=== PATIENT | female | born 1945 | race Caucasian/White ===

== ENCOUNTER 2016-12-28 06:49 | Day surgery (SDC) | payer MEDICARE, BC ==
[~2016-12-28 06:49] MED LIST: Buffered Lidocaine 0.9% SYRIN* 5 ML/SYR SYRINGE INTRADERM ONE
[2016-12-28] MEDS ORDERED: Propofol* 10 MG/ML 20 ML BTL IV PUSH ONE (09:14)
[2016-12-28] MEDS ORDERED: Lidocaine 2% PF * 5 ML VIAL ONE (09:14)
--- NOTE | 2016-12-28 09:26 | OP ---
DATE OF OPERATION: 12/28/2016. DATE OF : 1945. SURGEON: Matt Mcneal M.D. PREOPERATIVE DIAGNOSIS: Cataract right eye. POSTOPERATIVE DIAGNOSIS: Cataract right eye. OPERATIVE PROCEDURE: Phacoemulsification right eye with IOL. PROCEDURE: The patient was brought to the operating room after being given 1/2% Alcaine with epineph rine drops in the preoperative area. The eye was prepped and draped in the usual sterile fashion. S terile drape and eyelid speculum were placed. Again, topical 1/2% Alcaine with epinephrine was given . A paracentesis incision was made at the 9 o'clock position with the No.75 blade. Clear cornea inc ision 2.2 x 2.2-mm was created at the 12 o'clock position starting at the anterior limbus using the 2 .2-mm keratome. The anterior chamber was irrigated with 0.4 mL of 1% non-preservative intracameral l idocaine and filled with DisCoVisc. A capsulorrhexis was completed using the cystotome and the Utrat a forceps. Hydrodissection was performed with balanced salt solution. The lens nucleus was removed w ith the Phacoemulsification handpiece without incident. Cortex was removed with the irrigation-aspir ation handpiece. The capsular bag was re-inflated using DisCoVisc and an SN6AT4 22.5 implant was ins erted with the shooter. The irrigation-aspiration handpiece was used to remove all residual DisCoVis c. The eye was refilled with balanced salt solution and the wound checked and found to be watertight . Topical Maxitrol drops were given. [id number]/[facility] #: [id number]
[2016-12-28 09:36] VITALS: BP 137/57
[2016-12-28] MEDS ORDERED: Neomycin/Polymy/Dex OPTH.SUSP* MAXITROL 0.1% 5 ML ONE (14:23)
[2016-12-28] MEDS ORDERED: Lidocaine 2% EPI 1:200000 MPF* 20 ML VIAL ONE (14:23)
[2016-12-28] MEDS ORDERED: Lidocaine 1% MPF* 2 ML VIAL ONE (14:23)
[2016-12-28] MEDS ORDERED: Ketorolac 0.5% OPHTH (NF) 0.5 % 5 ML BTL ONE (14:23)
[2016-12-28] MEDS ORDERED: Proparacaine 0.5% OPHTH.SOL* 15 ML BTL ONE (14:23)
[2016-12-28] MEDS ORDERED: Buffered Lidocaine 0.9% SYRIN* 5 ML/SYR SYRINGE ONE (14:23)
[2016-12-28] MEDS ORDERED: Povidone Iodine 5% OPTH* 30 ML BTL ONE (14:23)
[2016-12-28] MEDS ORDERED: acetaZOLAMIDE TAB* 250 MG ONE (14:23)
[2016-12-28] MEDS ORDERED: Phenylephrine 2.5% OPTH.SOL* 2 ML BTL ONE (14:23)
[2016-12-28] MEDS ORDERED: Cyclopentolate 1% OPTH.SOL* 2 ML BTL ONE (14:23)
== END 2016-12-28 09:31 | disposition home or self-care (01) ==
LOC: OREAST 06:49
PROVIDERS: ATTEND Specialist
DX: H25.811 Combined forms of age-related cataract, right eye (principal); H33.8 Other retinal detachments; H35.372 Puckering of macula, left eye; H43.813 Vitreous degeneration, bilateral; K74.3 Primary biliary cirrhosis; M15.0 Primary generalized (osteo)arthritis; E55.9 Vitamin D deficiency, unspecified; E04.2 Nontoxic multinodular goiter; N95.9 Unspecified menopausal and perimenopausal disorder; D14.30 Benign neoplasm of unspecified bronchus and lung; E03.9 Hypothyroidism, unspecified; F41.9 Anxiety disorder, unspecified
CPT/HCPCS: A9270-GY; J2704; V2787

== ENCOUNTER 2022-05-03 06:07 | Observation (INO) ==
[~2022-05-03 06:07] MED LIST changes: -Buffered Lidocaine 0.9% SYRIN* 5 ML/SYR SYRINGE INTRADERM ONE; +Buffered Lidocaine 1% SYRIN 1 ml INTRADERM ONE; +Lactated Ringers 1000 ml BAG 1,000 ML IV SCH; +Naloxone 0.4 mg VIAL 0.4 mg/ml 1 ml VIAL IV PRN; +Ondansetron 4 mg VIAL 2 MG/ML 2 ml VIAL IV PRN; +fentaNYL 100 mcg/2 ml 50 MCG/ML VIAL IV PRN
[2022-05-03] MEDS ORDERED: ceFAZolin 2 GM PREMIX 2 GM/50 ML BAG ONE (06:22)
[2022-05-03] MEDS ORDERED: Propofol 10 MG/ML 20 ML BTL ONE ×2 (07:58→10:26)
[2022-05-03] MEDS ORDERED: Lidocaine 2% PF 5 ML VIAL ONE (07:58)
[2022-05-03] MEDS ORDERED: Ketamine HCL 50 mg/ml 10 ml VIAL (500 MG) ONE (07:59)
[2022-05-03] MEDS ORDERED: ROPIVACAINE 5 MG/ML 30 ML BTL (0.5%) ONE (08:01)
[2022-05-03] MEDS ORDERED: Midazolam 2 mg/2 ml VIAL 1 mg/ml 2 ml VIAL (2 mg) ONE ×2 (08:01→08:56)
[2022-05-03] MEDS ORDERED: fentaNYL 100 mcg/2 ml 50 MCG/ML VIAL ONE (08:01)
[2022-05-03] MEDS ORDERED: Dexamethasone IV 4 MG/ML VIAL 1 ml VIAL ONE (08:02)
[2022-05-03] MEDS ORDERED: Ropivacaine 5 MG/ML 20 ML VIAL 0.5% (100 MG) ONE (08:24)
[2022-05-03] MEDS ORDERED: Phenylephrine IV 10 MG/ML 1 ml VIAL ONE (09:13)
[2022-05-03] MEDS ORDERED: Magnesium Hydroxide LIQ 30 ML UDC PO PRN (09:56)
[2022-05-03] MEDS ORDERED: Morphine 2 MG/ML SYRINGE IV PRN (09:56)
[2022-05-03] MEDS ORDERED: Lactulose 30 ml UDC PO PRN (09:56)
[2022-05-03] MEDS ORDERED: Ondansetron ODT 4 mg TAB 4 MG TAB PO PRN (09:56)
[2022-05-03] MEDS ORDERED: Ondansetron 4 mg VIAL 2 MG/ML 2 ml VIAL IV PRN (09:56)
[2022-05-03] MEDS ORDERED: Scopolamine 1 mg/72hr PATCH TRANSDERM PRN (10:03)
[2022-05-03] MEDS ORDERED: Ondansetron 4 mg VIAL 2 MG/ML 2 ml VIAL ONE (10:03)
[2022-05-03] MEDS: Lactated Ringers 1000 ml BAG 1,000 ML IV SCH ×2 (13:13→23:02)
[2022-05-03] MEDS: ceFAZolin 1 GM in Dextrose 1 GM/50 ML BAG IVPB SCH (17:51)
[2022-05-03] MEDS: Magnesium Hydroxide LIQ 30 ML UDC PO SCH (20:30)
[2022-05-04] MEDS: ceFAZolin 1 GM in Dextrose 1 GM/50 ML BAG IVPB SCH ×2 (02:09→10:16)
[2022-05-04 06:38] LABS: Hematocrit 33 % (35-47); Mean Platelet Volume 8.4 fL (7.4-10.4); Platelet Count 202 10^3/uL (150-450)
[2022-05-04 06:53] LABS: Calcium 8.6 mg/dL (8.6-10.3); Creatinine, Serum 0.8 mg/dL (0.51-0.95); Potassium 4.6 mmol/L (3.5-5.0); eGFR CKD-EPI 75.8 (>60)
[2022-05-04] MEDS: Magnesium Hydroxide LIQ 30 ML UDC PO SCH (07:34)
[2022-05-04] MEDS ORDERED: Vitamin THERAPEUTIC TAB PO SCH (09:00)
[2022-05-04 12:18] VITALS: BP 91/54
== END 2022-05-04 13:40 | disposition home or self-care (01) ==
LOC: SSU 06:07 → OR 06:07
PROVIDERS: ADMIT Orthopaedic Surgery Adult Reconstructive Orthopaedic Surgery; ATTEND Orthopaedic Surgery Adult Reconstructive Orthopaedic Surgery

== ENCOUNTER 2023-11-20 10:27 | Inpatient (IN) ==
[2023-11-20] MEDS: Ondansetron 4 mg VIAL 2 MG/ML 2 ml VIAL IV ONE (14:10)
[2023-11-20] MEDS: Lactated Ringers 1000 ml BAG IV.FLUID IV ONE (14:10)
[2023-11-20 14:21] LABS: Hematocrit 52.5 % (35-45); Hemoglobin 17.7 g/dL (11.5-14.3); Mean Corpuscular Hgb Conc 33.8 g/dL (31-36); Mean Corpuscular Volume 97.8 fL (80-97); Mean Platelet Volume 8.2 fL (7.5-11.2); Platelet Count 229 10^3/uL (150-450); Red Blood Count 5.37 10^6/uL (3.63-4.92); Red Cell Distribution Width 15.1 % (12-17); White Blood Count 25.2 10^3/uL (3.8-11.8)
[2023-11-20] MEDS: Piperacillin/Tazobac 3.375 BAG 3.375 GM/100 ML BAG IV ONE (14:53)
[2023-11-20 15:16] LABS: Albumin 4.1 g/dL (3.2-5.2); Albumin/Globulin Ratio 1.6 (1-3); C Reactive Protein 94.07 mg/L (<8.01); Calcium 9.5 mg/dL (8.6-10.3); Creatinine, Serum 0.69 mg/dL (0.51-0.95); Globulin 2.5 g/dL (2-4); Potassium 4.8 mmol/L (3.5-5.0); Total Bilirubin 1.1 mg/dL (0.2-1.0); Total Protein 6.6 g/dL (6.4-8.9); eGFR CKD-EPI 88.8 (>60)
[2023-11-20 15:36] LABS: ABS Lymphocytes 0.4 10^3/uL (1.0-4.8); ABS Monocytes 0.2 10^3/uL (0.0-0.9); ABS Nucleated RBC 0.03 10^3/ul; Lymphocyte % 1.7 %; Nucleated Red Blood Cells % 0.1 %/100WBC (0.0-0.8)
[2023-11-20] MEDS: Iohexol 350 (CONTRAST) 500 ML MDV IV ONE (15:44)
[2023-11-20 15:51] LABS: Urine Appearance Clear; Urine Bilirubin Negative (Negative); Urine Blood Negative (Negative); Urine Color Yellow; Urine Glucose Negative (Negative); Urine Ketones 1+ (Negative); Urine Nitrite Negative (Negative); Urine Protein Negative (Negative); Urine Specific Gravity 1.019 (1.002-1.030); Urine Urobilinogen Negative (Negative)
[2023-11-20] MEDS ORDERED: Polyethylene Glycol 3350 17 GM PACKET PO PRN (17:31)
[2023-11-20] MEDS ORDERED: Morphine 10 MG/ML VIAL (1 ml) IV PRN (17:37)
[2023-11-20 18:30] LABS: Hemoglobin 15.6 g/dL (11.5-14.3); Mean Corpuscular Hemoglobin 32.7 pg (27-33); Mean Corpuscular Hgb Conc 33.2 g/dL (31-36); Mean Corpuscular Volume 98.5 fL (80-97); Mean Platelet Volume 7.9 fL (7.5-11.2); Platelet Count 212 10^3/uL (150-450); Red Blood Count 4.77 10^6/uL (3.63-4.92); Red Cell Distribution Width 15.1 % (12-17); White Blood Count 26.1 10^3/uL (3.8-11.8)
[2023-11-20 18:37] LABS: ABS Lymphocytes 0.3 10^3/uL (1.0-4.8); ABS Monocytes 0.2 10^3/uL (0.0-0.9); ABS Neutrophils 25.6 10^3/uL (1.5-7.6); ABS Nucleated RBC 0.01 10^3/ul
[2023-11-20 19:38] LABS: Albumin 3.6 g/dL (3.2-5.2); Albumin/Globulin Ratio 1.7 (1-3); Calcium 8.9 mg/dL (8.6-10.3); Creatinine, Serum 0.68 mg/dL (0.51-0.95); Globulin 2.1 g/dL (2-4); Potassium 5.2 mmol/L (3.5-5.0); Total Bilirubin 1.1 mg/dL (0.2-1.0); Total Protein 5.7 g/dL (6.4-8.9); eGFR CKD-EPI 89.1 (>60)
[2023-11-20] MEDS: URSODIOL 250 MG PO SCH (20:25)
[2023-11-21] MEDS: Morphine 2 MG/ML SYRINGE IV PRN (00:29)
[2023-11-21] MEDS ORDERED: Zosyn per Pharmacy NOTE FOLLOW UP SCH (13:00)
[2023-11-21] MEDS: Piperacillin/Tazobac 3.375 BAG 3.375 GM/100 ML BAG IV ONE (14:10)
[2023-11-21] MEDS: Lactated Ringers 1000 ml BAG 1,000 ML IV ONE (15:08)
[2023-11-21] MEDS: ZOSYN 3.375 GM Q8H per EXTENDED INFUSION IV SCH (18:35)
[2023-11-21] MEDS: Lidocaine PATCH 5% PATCH TRANSDERM PRN (21:55)
[2023-11-22 06:19] LABS: INR 1.04 (0.85-1.14)
[2023-11-22 06:21] LABS: ABS Eosinophils 0.1 10^3/uL (0.0-0.5); ABS Lymphocytes 0.5 10^3/uL (1.0-4.8); ABS Monocytes 0.3 10^3/uL (0.0-0.9); ABS Neutrophils 13.9 10^3/uL (1.5-7.6); ABS Nucleated RBC 0.01 10^3/ul; Eosinophil % 0.4 %; Hematocrit 37.7 % (35-45); Hemoglobin 12.7 g/dL (11.5-14.3); Lymphocyte % 3.7 %; Mean Corpuscular Hemoglobin 32.6 pg (27-33); Mean Corpuscular Hgb Conc 33.6 g/dL (31-36); Mean Platelet Volume 7.7 fL (7.5-11.2); Platelet Count 187 10^3/uL (150-450); Red Blood Count 3.88 10^6/uL (3.63-4.92); Red Cell Distribution Width 14.7 % (12-17); White Blood Count 14.8 10^3/uL (3.8-11.8)
[2023-11-22 06:42] LABS: C Reactive Protein 70.39 mg/L (<8.01); Calcium 8.1 mg/dL (8.6-10.3); Creatinine, Serum 0.64 mg/dL (0.51-0.95); Potassium 3.9 mmol/L (3.5-5.0); eGFR CKD-EPI 90.4 (>60)
[2023-11-22] MEDS: fentaNYL 250 mcg/5 ml 50 MCG/ML 5 ml VIAL (250 MCG) ONE (09:58)
[2023-11-22] MEDS: Enoxaparin 40 MG/0.4 ML SYR SUBCUT SCH (20:21)
[2023-11-23 05:52] LABS: ABS Lymphocytes 0.5 10^3/uL (1.0-4.8); ABS Monocytes 0.2 10^3/uL (0.0-0.9); ABS Neutrophils 7.4 10^3/uL (1.5-7.6); Eosinophil % 0.3 %; Hematocrit 39.3 % (35-45); Hemoglobin 12.9 g/dL (11.5-14.3); Lymphocyte % 5.8 %; Mean Corpuscular Hemoglobin 32.2 pg (27-33); Mean Corpuscular Hgb Conc 32.8 g/dL (31-36); Mean Corpuscular Volume 98.4 fL (80-97); Platelet Count 196 10^3/uL (150-450); Red Blood Count 3.99 10^6/uL (3.63-4.92); Red Cell Distribution Width 14.8 % (12-17); White Blood Count 8.1 10^3/uL (3.8-11.8)
[2023-11-23 06:09] LABS: Creatinine, Serum 0.62 mg/dL (0.51-0.95); Magnesium 1.9 mg/dL (1.9-2.7); Potassium 3.9 mmol/L (3.5-5.0); eGFR CKD-EPI 91.1 (>60)
[2023-11-23] MEDS: HYDROmorphone 0.5 MG/0.5 ML SYRINGE IV SLOW PU PRN ×2 (08:50→18:54)
[2023-11-23] MEDS: HYDROmorphone 0.5 MG/0.5 ML SYRINGE IV SLOW PU ONE (09:30)
[2023-11-23] MEDS: Iohexol 350 (CONTRAST) 500 ML MDV IV ONE (10:11)
[2023-11-23] MEDS ORDERED: fentaNYL 100 mcg/2 ml 50 MCG/ML VIAL ONE ×5 (11:41→15:34)
[2023-11-23] MEDS ORDERED: Rocuronium 50 mg VIAL 10 mg/ml 5 ml VIAL (50 mg) ONE ×2 (11:41→13:41)
[2023-11-23] MEDS ORDERED: Midazolam 2 mg/2 ml VIAL 1 mg/ml 2 ml VIAL (2 mg) ONE (11:41)
[2023-11-23] MEDS ORDERED: Propofol 10 MG/ML 20 ML BTL ONE (11:42)
[2023-11-23] MEDS ORDERED: Lidocaine 2% PF 5 ML VIAL ONE (11:42)
[2023-11-23] MEDS ORDERED: Ondansetron 4 mg VIAL 2 MG/ML 2 ml VIAL ONE (11:42)
[2023-11-23] MEDS ORDERED: Dexamethasone IV 4 MG/ML VIAL 1 ml VIAL ONE (11:42)
[2023-11-23] MEDS ORDERED: Phenylephrine IV 10 MG/ML 1 ml VIAL ONE (11:42)
[2023-11-23] MEDS ORDERED: Calcium CHLORIDE 10% SYRINGE 1 GM/10 ML ONE (11:48)
[2023-11-23] MEDS: fentaNYL 100 mcg/2 ml 50 MCG/ML VIAL IV PRN (12:05)
[2023-11-23] MEDS ORDERED: ROPIVACAINE 5 MG/ML 30 ML BTL (0.5%) ONE (13:23)
[2023-11-23] MEDS ORDERED: Naloxone 0.4 mg VIAL 0.4 mg/ml 1 ml VIAL IV PUSH PRN (15:10)
[2023-11-23] MEDS ORDERED: Ondansetron 4 mg VIAL 2 MG/ML 2 ml VIAL IV PRN ×2 (15:14→15:16)
[2023-11-23] MEDS ORDERED: Naloxone 0.4 mg VIAL 0.4 mg/ml 1 ml VIAL IV PRN (15:16)
[2023-11-23] MEDS ORDERED: Metoclopramide 5 MG/ML VIAL (10 mg) IV PRN (15:16)
[2023-11-23] MEDS ORDERED: HYDROmorphone PCA 20 MG/20 ML PCA.SYRING PCA SCH (16:00)
[2023-11-23] MEDS ORDERED: NS 0.45% 1000 ml BAG 1,000 ML IV SCH (16:00)
[2023-11-23] MEDS ORDERED: Lactated Ringers 1000 ml BAG 1,000 ML IV SCH (16:00)
[2023-11-23] MEDS ORDERED: Acetaminophen IV 1 GM/100ML 1,000 MG/100 ML BAG IV ONE (16:20)
[2023-11-23] MEDS: Acetaminophen IV 1 GM/100ML 1,000 MG/100 ML BAG IV ONE (16:24)
[2023-11-23] MEDS: Lactated Ringers 1000 ml BAG 1,000 ML IV ONE (19:08)
[2023-11-23] MEDS: Buffered Lidocaine 1% SYRIN 1 ml INTRADERM ONE (20:26)
[2023-11-23] MEDS: Morphine 4 MG/ML VIAL (1 ml) IV PRN (21:23)
[2023-11-23] MEDS: Scopolamine 1 mg/72hr PATCH TRANSDERM ONE (21:55)
[2023-11-23] MEDS: Morphine 2 MG/ML SYRINGE IV PRN (22:44)
[2023-11-24] MEDS: HYDROmorphone 0.5 MG/0.5 ML SYRINGE IV SLOW PU PRN (05:36)
[2023-11-24 06:31] LABS: Hematocrit 39.7 % (35-45); Hemoglobin 13.1 g/dL (11.5-14.3); Mean Corpuscular Hemoglobin 32.9 pg (27-33); Mean Corpuscular Hgb Conc 33.1 g/dL (31-36); Mean Corpuscular Volume 99.4 fL (80-97); Mean Platelet Volume 8.3 fL (7.5-11.2); Platelet Count 184 10^3/uL (150-450); Red Blood Count 3.99 10^6/uL (3.63-4.92); Red Cell Distribution Width 15.3 % (12-17); White Blood Count 18.8 10^3/uL (3.8-11.8)
[2023-11-24] MEDS: NS 0.9% 1000 ml BAG 1,000 ML IV SCH (06:32)
[2023-11-24 06:34] LABS: Creatinine, Serum 0.68 mg/dL (0.51-0.95); Magnesium 1.7 mg/dL (1.9-2.7); eGFR CKD-EPI 89.1 (>60)
[2023-11-24 07:31] LABS: ABS Lymphocytes 0.6 10^3/uL (1.0-4.8); ABS Monocytes 0.3 10^3/uL (0.0-0.9); ABS Neutrophils 17.9 10^3/uL (1.5-7.6); ABS Nucleated RBC 0.02 10^3/ul; Lymphocyte % 3.2 %; Nucleated Red Blood Cells % 0.1 %/100WBC (0.0-0.8)
[2023-11-24] MEDS: Magnesium Sulfate 2 gm BAG 2 GM/50 ML BAG IVPB ONE (09:23)
[2023-11-24] MEDS: Morphine 4 MG/ML VIAL (1 ml) IV PRN (12:54)
[2023-11-24] MEDS: Enoxaparin 40 MG/0.4 ML SYR SUBCUT SCH (13:01)
[2023-11-25] MEDS: Morphine 2 MG/ML SYRINGE IV PRN (06:10)
[2023-11-25 06:54] LABS: ABS Lymphocytes 0.7 10^3/uL (1.0-4.8); ABS Monocytes 0.4 10^3/uL (0.0-0.9); ABS Neutrophils 12.2 10^3/uL (1.5-7.6); Eosinophil % 0.1 %; Hematocrit 29.2 % (35-45); Hemoglobin 9.8 g/dL (11.5-14.3); Lymphocyte % 4.9 %; Mean Corpuscular Hgb Conc 33.7 g/dL (31-36); Mean Corpuscular Volume 97.9 fL (80-97); Mean Platelet Volume 7.6 fL (7.5-11.2); Platelet Count 200 10^3/uL (150-450); Red Blood Count 2.98 10^6/uL (3.63-4.92); Red Cell Distribution Width 14.9 % (12-17); White Blood Count 13.3 10^3/uL (3.8-11.8)
[2023-11-25 07:32] LABS: Calcium 7.2 mg/dL (8.6-10.3); Creatinine, Serum 0.57 mg/dL (0.51-0.95); Magnesium 2.2 mg/dL (1.9-2.7)
[2023-11-25] MEDS: Famotidine IV 10 MG/ML 2 ml VIAL (20 mg) IV SLOW PU SCH (13:32)
[2023-11-25] MEDS: NS 0.9% 1000 ml BAG 1,000 ML IV SCH (13:32)
[2023-11-25] MEDS: Collagenase 250 units/gm OINT 1 tube TOPICAL SCH (16:16)
[2023-11-25 18:00] LABS: Hematocrit 28.8 % (35-45); Hemoglobin 9.6 g/dL (11.5-14.3)
[2023-11-26 06:50] LABS: Hematocrit 25.6 % (35-45); Hemoglobin 8.6 g/dL (11.5-14.3); Mean Corpuscular Hemoglobin 33.4 pg (27-33); Mean Corpuscular Hgb Conc 33.7 g/dL (31-36); Platelet Count 220 10^3/uL (150-450); Red Blood Count 2.59 10^6/uL (3.63-4.92); Red Cell Distribution Width 14.9 % (12-17); White Blood Count 12.1 10^3/uL (3.8-11.8)
[2023-11-26 07:15] LABS: Calcium 7.5 mg/dL (8.6-10.3); Creatinine, Serum 0.57 mg/dL (0.51-0.95)
[2023-11-26 07:35] LABS: ABS Eosinophils 0.1 10^3/uL (0.0-0.5); ABS Lymphocytes 1.1 10^3/uL (1.0-4.8); ABS Monocytes 0.5 10^3/uL (0.0-0.9); ABS Neutrophils 10.5 10^3/uL (1.5-7.6); ABS Nucleated RBC 0.02 10^3/ul; Anisocytosis 1+; Eosinophil % 0.6 %; Lymphocyte % 8.7 %; Nucleated Red Blood Cells % 0.1 %/100WBC (0.0-0.8); Polychromasia 1+
[2023-11-26 14:35] LABS: Hemoglobin 9.1 g/dL (11.5-14.3)
[2023-11-27 05:39] LABS: Hematocrit 23.9 % (35-45); Mean Corpuscular Hemoglobin 32.7 pg (27-33); Mean Corpuscular Hgb Conc 33.4 g/dL (31-36); Mean Corpuscular Volume 97.8 fL (80-97); Mean Platelet Volume 7.4 fL (7.5-11.2); Platelet Count 242 10^3/uL (150-450); Red Blood Count 2.44 10^6/uL (3.63-4.92); Red Cell Distribution Width 14.9 % (12-17); White Blood Count 15.6 10^3/uL (3.8-11.8)
[2023-11-27 05:59] LABS: Calcium 7.7 mg/dL (8.6-10.3); Creatinine, Serum 0.52 mg/dL (0.51-0.95); Potassium 3.9 mmol/L (3.5-5.0)
[2023-11-27 06:07] LABS: ABS Lymphocytes 1.1 10^3/uL (1.0-4.8); ABS Monocytes 0.5 10^3/uL (0.0-0.9); ABS Neutrophils 13.9 10^3/uL (1.5-7.6); ABS Nucleated RBC 0.05 10^3/ul; Eosinophil % 0.1 %; Lymphocyte % 7.2 %; Nucleated Red Blood Cells % 0.3 %/100WBC (0.0-0.8)
[2023-11-27] MEDS: Lidocaine 1% MPF 5 ML VIAL INJ ONE (15:14)
[2023-11-28 06:23] LABS: Hematocrit 20.6 % (35-45); Hemoglobin 6.9 g/dL (11.5-14.3); Mean Corpuscular Hgb Conc 33.5 g/dL (31-36); Mean Corpuscular Volume 98.5 fL (80-97); Mean Platelet Volume 6.8 fL (7.5-11.2); Platelet Count 254 10^3/uL (150-450); Red Blood Count 2.09 10^6/uL (3.63-4.92); White Blood Count 10.6 10^3/uL (3.8-11.8)
[2023-11-28 07:08] LABS: ABS Eosinophils 0.1 10^3/uL (0.0-0.5); ABS Monocytes 0.4 10^3/uL (0.0-0.9); ABS Neutrophils 9.1 10^3/uL (1.5-7.6); Anisocytosis 1+; Eosinophil % 1.1 %; Lymphocyte % 9.4 %
[2023-11-28] MEDS ORDERED: Sulfur Hexaflouride MICROSPHR 25 MG VIAL IV PRN (11:17)
[2023-11-28] MEDS: Furosemide 20 mg/2 ml IV VIAL IV SLOW PU ONE (17:55)
[2023-11-28 20:03] LABS: Hematocrit 31.2 % (35-45); Hemoglobin 10.6 g/dL (11.5-14.3)
[2023-11-29 06:51] LABS: Hematocrit 30.1 % (35-45); Hemoglobin 10.2 g/dL (11.5-14.3); Mean Corpuscular Hemoglobin 32.7 pg (27-33); Mean Corpuscular Hgb Conc 33.8 g/dL (31-36); Mean Corpuscular Volume 96.6 fL (80-97); Mean Platelet Volume 7.2 fL (7.5-11.2); Platelet Count 297 10^3/uL (150-450); Red Blood Count 3.12 10^6/uL (3.63-4.92); Red Cell Distribution Width 15.4 % (12-17); White Blood Count 13.8 10^3/uL (3.8-11.8)
[2023-11-29 07:07] LABS: Calcium 8.3 mg/dL (8.6-10.3); Creatinine, Serum 0.62 mg/dL (0.51-0.95); Magnesium 1.8 mg/dL (1.9-2.7); Phosphorus 2.7 mg/dL (2.5-5.0); Potassium 3.8 mmol/L (3.5-5.0); eGFR CKD-EPI 91.1 (>60)
[2023-11-29] MEDS: Magnesium Sulfate 2 gm BAG 2 GM/50 ML BAG IVPB ONE (08:07)
[2023-11-29 08:58] LABS: ABS Eosinophils 0.2 10^3/uL (0.0-0.5); ABS Lymphocytes 1.5 10^3/uL (1.0-4.8); ABS Monocytes 0.5 10^3/uL (0.0-0.9); ABS Neutrophils 11.6 10^3/uL (1.5-7.6); ABS Nucleated RBC 0.17 10^3/ul; Anisocytosis 1+; Eosinophil % 1.1 %; Lymphocyte % 10.6 %; Nucleated Red Blood Cells % 1.2 %/100WBC (0.0-0.8); Polychromasia 1+; Toxic Granulation 3+
[2023-11-29] MEDS: HYDROcodone/ACETAMIN 5/325 mg TAB PO PRN (15:31)
[2023-11-30 09:09] LABS: ABS Eosinophils 0.1 10^3/uL (0.0-0.5); ABS Lymphocytes 0.9 10^3/uL (1.0-4.8); ABS Monocytes 0.4 10^3/uL (0.0-0.9); ABS Nucleated RBC 0.05 10^3/ul; Eosinophil % 0.9 %; Hematocrit 29.4 % (35-45); Mean Corpuscular Hemoglobin 33.2 pg (27-33); Mean Corpuscular Hgb Conc 34.1 g/dL (31-36); Mean Corpuscular Volume 97.4 fL (80-97); Mean Platelet Volume 7.1 fL (7.5-11.2); Nucleated Red Blood Cells % 0.5 %/100WBC (0.0-0.8); Platelet Count 310 10^3/uL (150-450); Red Blood Count 3.02 10^6/uL (3.63-4.92); Red Cell Distribution Width 15.9 % (12-17); White Blood Count 10.4 10^3/uL (3.8-11.8)
[2023-11-30 09:41] LABS: Creatinine, Serum 0.52 mg/dL (0.51-0.95); Magnesium 2.1 mg/dL (1.9-2.7); Potassium 3.9 mmol/L (3.5-5.0)
[2023-11-30] MEDS: HYDROcodone/Acetamin 10/325 TAB (NF) PO PRN (11:09)
[2023-11-30] MEDS: Morphine 4 MG/ML VIAL (1 ml) IV PRN ×2 (12:51→19:59)
[2023-11-30] MEDS: Enoxaparin 40 MG/0.4 ML SYR SUBCUT SCH (14:51)
[2023-12-01 08:19] LABS: Hematocrit 30.2 % (35-45); Hemoglobin 10.4 g/dL (11.5-14.3); Mean Corpuscular Hemoglobin 33.9 pg (27-33); Mean Corpuscular Hgb Conc 34.3 g/dL (31-36); Mean Corpuscular Volume 98.7 fL (80-97); Mean Platelet Volume 6.9 fL (7.5-11.2); Platelet Count 306 10^3/uL (150-450); Red Blood Count 3.06 10^6/uL (3.63-4.92); White Blood Count 8.6 10^3/uL (3.8-11.8)
[2023-12-02] MEDS: Morphine 4 MG/ML VIAL (1 ml) IV PRN ×2 (02:17→10:03)
[2023-12-02] MEDS: Mupirocin 2% OINT TUBE TOPICAL SCH (22:15)
[2023-12-04 05:52] LABS: ABS Eosinophils 0.1 10^3/uL (0.0-0.5); ABS Lymphocytes 0.8 10^3/uL (1.0-4.8); ABS Monocytes 0.5 10^3/uL (0.0-0.9); ABS Neutrophils 7.1 10^3/uL (1.5-7.6); ABS Nucleated RBC 0.02 10^3/ul; Eosinophil % 0.8 %; Hematocrit 29.8 % (35-45); Hemoglobin 9.9 g/dL (11.5-14.3); Lymphocyte % 9.8 %; Mean Corpuscular Hemoglobin 33.1 pg (27-33); Mean Corpuscular Hgb Conc 33.2 g/dL (31-36); Mean Corpuscular Volume 99.6 fL (80-97); Mean Platelet Volume 7.3 fL (7.5-11.2); Nucleated Red Blood Cells % 0.2 %/100WBC (0.0-0.8); Platelet Count 326 10^3/uL (150-450); Red Blood Count 2.99 10^6/uL (3.63-4.92); Red Cell Distribution Width 17.1 % (12-17); White Blood Count 8.5 10^3/uL (3.8-11.8)
[2023-12-04 06:06] LABS: Albumin/Globulin Ratio 1.9 (1-3); Calcium 8.5 mg/dL (8.6-10.3); Creatinine, Serum 0.45 mg/dL (0.51-0.95); Globulin 1.6 g/dL (2-4); Potassium 4.1 mmol/L (3.5-5.0); Total Bilirubin 0.7 mg/dL (0.2-1.0); Total Protein 4.6 g/dL (6.4-8.9); eGFR CKD-EPI 98.4 (>60)
[2023-12-04 12:20] LABS: Rapid COVID-19 Molecular Undetected (Undetected)
[2023-12-04] MEDS: Aspirin EC 325 mg TAB.EC PO SCH (22:12)
[2023-12-05] MEDS ORDERED: HYDROcodone/Acetamin 10/325 TAB (NF) PO PRN (15:54)
[2023-12-05] MEDS ORDERED: HYDROcodone/ACETAMIN 5/325 mg TAB PO PRN (18:00)
[2023-12-06] MEDS: Morphine 2 MG/ML SYRINGE IV PRN (02:46)
[2023-12-06] MEDS: oxyCODONE/Acetamin 5/325 mg TAB PO PRN ×2 (04:29→08:32)
[2023-12-06 05:59] LABS: ABS Basophils 0.1 10^3/uL (0.0-0.1); ABS Eosinophils 0.1 10^3/uL (0.0-0.5); ABS Lymphocytes 0.8 10^3/uL (1.0-4.8); ABS Monocytes 0.5 10^3/uL (0.0-0.9); ABS Neutrophils 8.7 10^3/uL (1.5-7.6); ABS Nucleated RBC 0.01 10^3/ul; Eosinophil % 0.7 %; Hematocrit 30.7 % (35-45); Hemoglobin 10.1 g/dL (11.5-14.3); Mean Corpuscular Hemoglobin 32.6 pg (27-33); Mean Corpuscular Hgb Conc 32.9 g/dL (31-36); Mean Corpuscular Volume 99.2 fL (80-97); Mean Platelet Volume 7.2 fL (7.5-11.2); Nucleated Red Blood Cells % 0.1 %/100WBC (0.0-0.8); Platelet Count 352 10^3/uL (150-450); Red Cell Distribution Width 16.6 % (12-17); White Blood Count 10.1 10^3/uL (3.8-11.8)
[2023-12-06 06:23] LABS: Calcium 8.5 mg/dL (8.6-10.3); Creatinine, Serum 0.46 mg/dL (0.51-0.95); eGFR CKD-EPI 97.9 (>60)
[2023-12-06] MEDS ORDERED: Morphine 2 MG/ML SYRINGE IV PRN (06:45)
[2023-12-06] MEDS: Senna TAB 8.6 mg TAB PO SCH (10:09)
[2023-12-06] MEDS: Polyethylene Glycol 3350 17 GM PACKET PO SCH (11:24)
[2023-12-06] MEDS ORDERED: Midazolam 5 mg/5 ml VIAL 1 mg/ml 5 ml VIAL (5 mg) ONE (15:00)
[2023-12-06] MEDS ORDERED: fentaNYL 250 mcg/5 ml 50 MCG/ML 5 ml VIAL (250 MCG) ONE (15:00)
[2023-12-06] MEDS ORDERED: URSODIOL 250 MG PO SCH (21:00)
[2023-12-07] MEDS ORDERED: Midazolam 5 mg/5 ml VIAL 1 mg/ml 5 ml VIAL (5 mg) ONE (07:25)
[2023-12-07] MEDS ORDERED: fentaNYL 250 mcg/5 ml 50 MCG/ML 5 ml VIAL (250 MCG) ONE (07:25)
[2023-12-07] MEDS ORDERED: Iodixanol 320 (CONTRAST) 100 ML SDV ONE ×2 (08:32→09:55)
[2023-12-07] MEDS ORDERED: Lidocaine 1% VIAL 10 MG/ML 30 ML VIAL ONE (08:32)
[2023-12-07] MEDS ORDERED: Heparin 2 UNITS/ML IVPREMIX 3,000 UNIT/1,500 ML BAG IV ONE (08:33)
[2023-12-07] MEDS ORDERED: Heparin 1,000 UNIT/ML 10 ml (10,000 UNITS) CATHLAB/DIALYSIS ONE (08:52)
[2023-12-07] MEDS ORDERED: Flumazenil 0.5 mg/5 ml 0.1 MG/ML 5 ml VIAL IV PRN (08:59)
[2023-12-07] MEDS ORDERED: Naloxone 0.4 mg VIAL 0.4 mg/ml 1 ml VIAL IV PUSH PRN (08:59)
[2023-12-07] MEDS ORDERED: nitroGLYCERIN DRIP 25,000 MCG/250 ML BTL ONE (09:34)
[2023-12-07] MEDS ORDERED: fentaNYL 100 mcg/2 ml 50 MCG/ML VIAL ONE ×3 (10:06→15:57)
[2023-12-07] MEDS ORDERED: HYDROmorphone 0.5 MG/0.5 ML SYRINGE ONE (11:04)
[2023-12-07] MEDS ORDERED: oxyCODONE/Acetamin 5/325 mg TAB ONE ×2 (11:51→16:55)
[2023-12-07] MEDS: Midazolam 10 mg/10 ml VIAL 1 mg/ml 10 ml VIAL (10 mg) IV SLOW PU ONE (11:58)
[2023-12-07] MEDS: fentaNYL 100 mcg/2 ml 50 MCG/ML VIAL IV SLOW PU ONE (11:58)
[2023-12-07] MEDS ORDERED: HYDROmorphone 1 MG/1 ML SYRINGE ONE (15:55)
[2023-12-07] MEDS: HYDROmorphone 0.5 MG/0.5 ML SYRINGE IV PRN (15:57)
[2023-12-07] MEDS: Morphine 2 MG/ML SYRINGE IV ONE (18:30)
[2023-12-08] MEDS ORDERED: Aspirin EC 81 mg TAB.EC (enteric coated) PO SCH (09:00)
[2023-12-08 09:24] LABS: ABS Basophils 0.1 10^3/uL (0.0-0.1); ABS Lymphocytes 0.8 10^3/uL (1.0-4.8); ABS Monocytes 0.5 10^3/uL (0.0-0.9); ABS Neutrophils 11.1 10^3/uL (1.5-7.6); ABS Nucleated RBC 0.01 10^3/ul; Eosinophil % 0.2 %; Hematocrit 30.5 % (35-45); Hemoglobin 9.8 g/dL (11.5-14.3); Lymphocyte % 6.2 %; Mean Corpuscular Hemoglobin 31.9 pg (27-33); Mean Corpuscular Hgb Conc 32.1 g/dL (31-36); Mean Corpuscular Volume 99.2 fL (80-97); Mean Platelet Volume 7.2 fL (7.5-11.2); Nucleated Red Blood Cells % 0.1 %/100WBC (0.0-0.8); Platelet Count 308 10^3/uL (150-450); Red Blood Count 3.07 10^6/uL (3.63-4.92); Red Cell Distribution Width 15.9 % (12-17); White Blood Count 12.5 10^3/uL (3.8-11.8)
[2023-12-08] MEDS: Enoxaparin 40 MG/0.4 ML SYR SUBCUT SCH (09:35)
[2023-12-09 06:10] LABS: ABS Monocytes 0.5 10^3/uL (0.0-0.9); ABS Neutrophils 8.7 10^3/uL (1.5-7.6); ABS Nucleated RBC 0.01 10^3/ul; Eosinophil % 0.2 %; Hematocrit 24.8 % (35-45); Hemoglobin 8.4 g/dL (11.5-14.3); Lymphocyte % 9.6 %; Mean Corpuscular Hemoglobin 33.4 pg (27-33); Mean Corpuscular Hgb Conc 33.9 g/dL (31-36); Mean Corpuscular Volume 98.4 fL (80-97); Mean Platelet Volume 7.6 fL (7.5-11.2); Nucleated Red Blood Cells % 0.1 %/100WBC (0.0-0.8); Platelet Count 282 10^3/uL (150-450); Red Blood Count 2.53 10^6/uL (3.63-4.92); White Blood Count 10.2 10^3/uL (3.8-11.8)
[2023-12-09 06:29] LABS: Calcium 8.4 mg/dL (8.6-10.3); Creatinine, Serum 0.53 mg/dL (0.51-0.95); Potassium 4.5 mmol/L (3.5-5.0); eGFR CKD-EPI 94.6 (>60)
[2023-12-09 12:03] LABS: Hematocrit 25.8 % (35-45); Hemoglobin 8.5 g/dL (11.5-14.3)
[2023-12-09 18:32] LABS: Hemoglobin 9.1 g/dL (11.5-14.3)
[2023-12-09] MEDS: Enoxaparin 40 MG/0.4 ML SYR SUBCUT SCH (21:44)
[2023-12-10 05:51] LABS: ABS Monocytes 0.4 10^3/uL (0.0-0.9); ABS Neutrophils 8.4 10^3/uL (1.5-7.6); ABS Nucleated RBC 0.01 10^3/ul; Eosinophil % 0.4 %; Hematocrit 24.3 % (35-45); Hemoglobin 8.1 g/dL (11.5-14.3); Lymphocyte % 9.7 %; Mean Corpuscular Hemoglobin 32.8 pg (27-33); Mean Corpuscular Hgb Conc 33.1 g/dL (31-36); Mean Corpuscular Volume 98.9 fL (80-97); Mean Platelet Volume 7.5 fL (7.5-11.2); Nucleated Red Blood Cells % 0.1 %/100WBC (0.0-0.8); Platelet Count 303 10^3/uL (150-450); Red Blood Count 2.46 10^6/uL (3.63-4.92); Red Cell Distribution Width 16.2 % (12-17); White Blood Count 9.9 10^3/uL (3.8-11.8)
[2023-12-10 06:02] LABS: Calcium 8.3 mg/dL (8.6-10.3); Creatinine, Serum 0.51 mg/dL (0.51-0.95); Potassium 4.7 mmol/L (3.5-5.0); eGFR CKD-EPI 95.5 (>60)
[2023-12-10 12:35] LABS: Hematocrit 25.7 % (35-45); Hemoglobin 8.5 g/dL (11.5-14.3)
[2023-12-11] MEDS: Ondansetron ODT 4 mg TAB 4 MG TAB SL PRN (05:52)
[2023-12-11 06:30] LABS: ABS Basophils 0.1 10^3/uL (0.0-0.1); ABS Lymphocytes 1.3 10^3/uL (1.0-4.8); ABS Monocytes 0.5 10^3/uL (0.0-0.9); ABS Neutrophils 8.6 10^3/uL (1.5-7.6); ABS Nucleated RBC 0.08 10^3/ul; Eosinophil % 0.3 %; Hematocrit 25.4 % (35-45); Hemoglobin 8.4 g/dL (11.5-14.3); Lymphocyte % 12.3 %; Mean Corpuscular Hemoglobin 32.7 pg (27-33); Mean Corpuscular Hgb Conc 33.2 g/dL (31-36); Mean Corpuscular Volume 98.4 fL (80-97); Mean Platelet Volume 7.3 fL (7.5-11.2); Nucleated Red Blood Cells % 0.8 %/100WBC (0.0-0.8); Platelet Count 329 10^3/uL (150-450); Red Blood Count 2.58 10^6/uL (3.63-4.92); Red Cell Distribution Width 16.5 % (12-17); White Blood Count 10.4 10^3/uL (3.8-11.8)
[2023-12-11 06:53] LABS: Calcium 8.5 mg/dL (8.6-10.3); Creatinine, Serum 0.45 mg/dL (0.51-0.95); Potassium 4.3 mmol/L (3.5-5.0); eGFR CKD-EPI 98.4 (>60)
[2023-12-11 09:56] VITALS: BP 118/71
== END 2023-12-11 13:25 | DRG 853 ==
LOC: ED 10:27 → EDHOLD 17:31 → SUATTDRO 17:31 → MEDTELE 22:14 → SSU 11-23 15:02
PROVIDERS: ADMIT Family Medicine; ATTEND Hospitalist

== ENCOUNTER 2023-12-19 14:00 | Inpatient (IN) ==
[2023-12-19 15:42] LABS: INR 1.03 (0.85-1.14)
[2023-12-19 16:03] LABS: ABS Lymphocytes 0.5 10^3/uL (1.0-4.8); ABS Monocytes 0.2 10^3/uL (0.0-0.9); ABS Neutrophils 12.9 10^3/uL (1.5-7.6); ABS Nucleated RBC 0.02 10^3/ul; Hematocrit 30.5 % (35-45); Hemoglobin 9.7 g/dL (11.5-14.3); Lymphocyte % 3.7 %; Mean Corpuscular Hemoglobin 30.7 pg (27-33); Mean Corpuscular Hgb Conc 31.7 g/dL (31-36); Mean Corpuscular Volume 96.9 fL (80-97); Nucleated Red Blood Cells % 0.1 %/100WBC (0.0-0.8); Platelet Count 521 10^3/uL (150-450); Red Blood Count 3.15 10^6/uL (3.63-4.92); Red Cell Distribution Width 16.7 % (12-17); White Blood Count 13.6 10^3/uL (3.8-11.8)
[2023-12-19 16:29] LABS: Albumin 3.1 g/dL (3.2-5.2); Albumin/Globulin Ratio 1.3 (1-3); C Reactive Protein 129.37 mg/L (<8.01); Calcium 8.5 mg/dL (8.6-10.3); Creatinine, Serum 0.46 mg/dL (0.51-0.95); Globulin 2.3 g/dL (2-4); Potassium 4.9 mmol/L (3.5-5.0); Total Protein 5.4 g/dL (6.4-8.9); eGFR CKD-EPI 97.9 (>60)
[2023-12-19] MEDS ORDERED: oxyCODONE/Acetamin 10/325(NF) TAB PO ONE (17:09)
[2023-12-19 17:11] LABS: Urine Appearance Clear; Urine Bilirubin Negative (Negative); Urine Blood Negative (Negative); Urine Color Yellow; Urine Glucose Negative (Negative); Urine Ketones 1+ (Negative); Urine Nitrite Negative (Negative); Urine Protein Negative (Negative); Urine Specific Gravity 1.015 (1.002-1.030); Urine Urobilinogen Negative (Negative); Urine pH 6.5 (5.0-8.0)
[2023-12-19 17:14] LABS: Urine Bacteria Absent /HPF (Absent); Urine Red Blood Cell 1+(3-5/hpf) /HPF (0-Trace); Urine White Blood Cell 3+(>20/hpf) /HPF (0-Trace)
[2023-12-19] MEDS: Iohexol 350 (CONTRAST) 500 ML MDV IV ONE (17:50)
[2023-12-19] MEDS: cefTRIAXone 1 gm/50 mL D5W 1 GM/50 ML BAG IV ONE (20:04)
[2023-12-19] MEDS: Vancomycin 1,000 MG in NS 0.9% 250 ml 250 ML IVPB ONE (21:02)
[2023-12-19] MEDS ORDERED: Vancomycin per Pharmacy 1 EA NOTE FOLLOW UP SCH (22:00)
[2023-12-19] MEDS: Enoxaparin 40 MG/0.4 ML SYR SUBCUT SCH (22:52)
[2023-12-19] MEDS: NS 0.9% 1000 ml BAG 1,000 ML IV ONE (22:58)
[2023-12-20] MEDS: Vancomycin 750 MG in NS 0.9% 250 ML IVPB SCH ×2 (04:35→23:00)
[2023-12-20 06:50] LABS: Hematocrit 27.1 % (35-45); Mean Corpuscular Hemoglobin 32.4 pg (27-33); Mean Corpuscular Hgb Conc 33.3 g/dL (31-36); Mean Corpuscular Volume 97.5 fL (80-97); Mean Platelet Volume 6.9 fL (7.5-11.2); Platelet Count 469 10^3/uL (150-450); Red Blood Count 2.78 10^6/uL (3.63-4.92); Red Cell Distribution Width 16.7 % (12-17); White Blood Count 10.3 10^3/uL (3.8-11.8)
[2023-12-20 07:23] LABS: Albumin 2.7 g/dL (3.2-5.2); Albumin/Globulin Ratio 1.4 (1-3); Calcium 7.8 mg/dL (8.6-10.3); Creatinine, Serum 0.41 mg/dL (0.51-0.95); Globulin 1.9 g/dL (2-4); Total Bilirubin 0.7 mg/dL (0.2-1.0); Total Protein 4.6 g/dL (6.4-8.9); eGFR CKD-EPI 100.6 (>60)
[2023-12-20 08:03] LABS: ABS Basophils 0.1 10^3/uL (0.0-0.1); ABS Eosinophils 0.2 10^3/uL (0.0-0.5); ABS Lymphocytes 0.9 10^3/uL (1.0-4.8); ABS Monocytes 0.4 10^3/uL (0.0-0.9); ABS Neutrophils 8.7 10^3/uL (1.5-7.6); ABS Nucleated RBC 0.03 10^3/ul; Nucleated Red Blood Cells % 0.3 %/100WBC (0.0-0.8)
[2023-12-20 08:04] LABS: Anisocytosis 1+; Polychromasia 1+
[2023-12-20] MEDS: Morphine 2 MG/ML SYRINGE IV PRN (10:37)
[2023-12-20] MEDS: cefTRIAXone 1 gm/50 mL D5W 1 GM/50 ML BAG IV SCH (19:54)
[2023-12-20] MEDS ORDERED: cefTRIAXone 1 gm/50 mL D5W 1 GM/50 ML BAG IV SCH (20:00)
[2023-12-20] MEDS: NF: Ursodiol 250 mg TAB (NF) PO SCH (22:40)
[2023-12-21] MEDS: Polyethylene Glycol 3350 17 GM PACKET PO PRN (00:08)
[2023-12-21] MEDS: Vancomycin Trough Check NOTE FOLLOW UP ONE (00:34)
[2023-12-21 07:27] LABS: Hematocrit 26.4 % (35-45); Hemoglobin 8.6 g/dL (11.5-14.3); Mean Corpuscular Hemoglobin 31.8 pg (27-33); Mean Corpuscular Hgb Conc 32.6 g/dL (31-36); Mean Corpuscular Volume 97.6 fL (80-97); Mean Platelet Volume 7.2 fL (7.5-11.2); Platelet Count 476 10^3/uL (150-450); Red Blood Count 2.71 10^6/uL (3.63-4.92); Red Cell Distribution Width 17.1 % (12-17); White Blood Count 7.9 10^3/uL (3.8-11.8)
[2023-12-21 07:50] LABS: Albumin 2.7 g/dL (3.2-5.2); Albumin/Globulin Ratio 1.4 (1-3); C Reactive Protein 82.81 mg/L (<8.01); Calcium 7.6 mg/dL (8.6-10.3); Creatinine, Serum 0.43 mg/dL (0.51-0.95); Globulin 1.9 g/dL (2-4); Potassium 4.1 mmol/L (3.5-5.0); Total Bilirubin 0.7 mg/dL (0.2-1.0); Total Protein 4.6 g/dL (6.4-8.9); eGFR CKD-EPI 99.5 (>60)
[2023-12-21 09:36] LABS: ABS Basophils 0.1 10^3/uL (0.0-0.1); ABS Eosinophils 0.1 10^3/uL (0.0-0.5); ABS Lymphocytes 0.9 10^3/uL (1.0-4.8); ABS Monocytes 0.3 10^3/uL (0.0-0.9); ABS Neutrophils 6.5 10^3/uL (1.5-7.6); ABS Nucleated RBC 0.01 10^3/ul; Eosinophil % 1.1 %; Nucleated Red Blood Cells % 0.2 %/100WBC (0.0-0.8)
[2023-12-21] MEDS: metroNIDAZOLE IV 500 MG/100ML 500 MG/100 ML BAG IVPB SCH (12:15)
[2023-12-22 05:42] LABS: ABS Eosinophils 0.1 10^3/uL (0.0-0.5); ABS Lymphocytes 0.9 10^3/uL (1.0-4.8); ABS Monocytes 0.4 10^3/uL (0.0-0.9); ABS Neutrophils 6.2 10^3/uL (1.5-7.6); ABS Nucleated RBC 0.01 10^3/ul; Eosinophil % 0.7 %; Hematocrit 25.6 % (35-45); Hemoglobin 8.4 g/dL (11.5-14.3); Lymphocyte % 12.3 %; Mean Corpuscular Volume 96.8 fL (80-97); Nucleated Red Blood Cells % 0.1 %/100WBC (0.0-0.8); Platelet Count 470 10^3/uL (150-450); Red Blood Count 2.64 10^6/uL (3.63-4.92); White Blood Count 7.6 10^3/uL (3.8-11.8)
[2023-12-22 06:02] LABS: Albumin 2.7 g/dL (3.2-5.2); Albumin/Globulin Ratio 1.4 (1-3); Calcium 7.9 mg/dL (8.6-10.3); Creatinine, Serum 0.55 mg/dL (0.51-0.95); Globulin 1.9 g/dL (2-4); Potassium 4.1 mmol/L (3.5-5.0); Total Bilirubin 0.5 mg/dL (0.2-1.0); Total Protein 4.6 g/dL (6.4-8.9); eGFR CKD-EPI 93.8 (>60)
[2023-12-23 07:06] LABS: Hematocrit 26.7 % (35-45); Hemoglobin 8.6 g/dL (11.5-14.3); Mean Corpuscular Hemoglobin 31.3 pg (27-33); Mean Corpuscular Hgb Conc 32.2 g/dL (31-36); Mean Corpuscular Volume 97.4 fL (80-97); Mean Platelet Volume 7.1 fL (7.5-11.2); Platelet Count 470 10^3/uL (150-450); Red Blood Count 2.74 10^6/uL (3.63-4.92); Red Cell Distribution Width 17.3 % (12-17); White Blood Count 7.7 10^3/uL (3.8-11.8)
[2023-12-23 07:26] LABS: Calcium 7.9 mg/dL (8.6-10.3); Creatinine, Serum 0.57 mg/dL (0.51-0.95); Potassium 4.3 mmol/L (3.5-5.0)
[2023-12-23] MEDS: Magic MouthWash2-BEN/MAAL/LIDO/NYST 240 ML BTL (alt formulation) SWISH SWAL SCH (13:44)
[2023-12-24 09:14] LABS: ABS Basophils 0.1 10^3/uL (0.0-0.1); ABS Eosinophils 0.2 10^3/uL (0.0-0.5); ABS Lymphocytes 1.7 10^3/uL (1.0-4.8); ABS Monocytes 0.4 10^3/uL (0.0-0.9); ABS Neutrophils 5.7 10^3/uL (1.5-7.6); ABS Nucleated RBC 0.01 10^3/ul; Eosinophil % 1.9 %; Hematocrit 30.8 % (35-45); Lymphocyte % 21.3 %; Mean Corpuscular Hemoglobin 31.8 pg (27-33); Mean Corpuscular Hgb Conc 32.6 g/dL (31-36); Mean Corpuscular Volume 97.4 fL (80-97); Mean Platelet Volume 6.9 fL (7.5-11.2); Nucleated Red Blood Cells % 0.1 %/100WBC (0.0-0.8); Platelet Count 509 10^3/uL (150-450); Red Blood Count 3.16 10^6/uL (3.63-4.92); Red Cell Distribution Width 17.8 % (12-17)
[2023-12-24 09:33] LABS: Calcium 8.3 mg/dL (8.6-10.3); Creatinine, Serum 0.58 mg/dL (0.51-0.95); Magnesium 1.9 mg/dL (1.9-2.7); Potassium 4.5 mmol/L (3.5-5.0); eGFR CKD-EPI 92.6 (>60)
[2023-12-25] MEDS ORDERED: Enoxaparin 30 MG/0.3 ML SYR SUBCUT SCH (08:00)
[2023-12-25] MEDS: Iohexol 300 (CONTRAST) 10 ML SDV IV ONE (10:00)
[2023-12-25] MEDS: Enoxaparin 40 MG/0.4 ML SYR SUBCUT SCH (16:41)
[2023-12-26 13:22] VITALS: BP 123/68
== END 2023-12-26 16:20 | disposition home or self-care (01) | DRG 872 ==
LOC: ED 14:00 → EDHOLD 14:00 → SUATTDRO 21:42 → MED 12-20 03:15 → SUATTDRO 12-20 12:00 → MED 12-21 22:04
PROVIDERS: ADMIT Physician Assistant; ATTEND Student in an Organized Health Care Education/Training Program